=== PATIENT | female | born 1980 | race Caucasian/White ===

== ENCOUNTER → 2018-03-24 | Outpatient (REF) | payer OTHER | LOC: M SFHCLERA 11:19 | DX: R30.0 Dysuria (principal) ==

== ENCOUNTER 2018-12-20 12:23 | Emergency (ER) | payer OTHER ==
[~2018-12-20] VITALS: Ht 165.1 cm; Wt 81.8 kg
[2018-12-20 12:23] VITALS: BP 175/103
--- NOTE | 2018-12-20 13:40 | REP ---
Clinical: Blunt trauma to the right frontotemporal region. Comparison: None . Findings: The ventricles, sulci, and cisterns are normal in position and appearance. Beltrán-white differentiation is maintained. No acute intracranial hemorrhage, mass/mass effect, pathology or trauma/injury. No evidence for acute infarction. No extra-axial fluid collection. Calvarium is intact. Paranasal sinuses and mastoid air cells are clear. A very small laceration involving the scalp of the right frontal region noted. Impression: Essentially normal examination. No evidence for acute intracranial pathology or trauma/injury. Electronically Signed by Jarek Meyer MD 12/20/2018 01:32 P
[2018-12-20] MEDS ORDERED: ACETAMINOPHEN 325 MG TAB PO ONE (13:45)
[2018-12-20] MEDS ORDERED: ONDANSETRON 4 MG ORAL DISINTEGRATING TAB (Q0162 PER 1MG) PO ONE (13:45)
[2018-12-20] MEDS ORDERED: LIDOCAINE W/EPINEPHRINE 1% 20ML VIAL SC ONE (14:00)
[2018-12-20] MEDS ORDERED: IBUP-1022 PO (14:35)
[2018-12-20] MEDS ORDERED: ONDA4TAB6 PO (14:35)
[2018-12-20] MEDS ORDERED: IBUPROFEN 800 MG TAB PO ONE (14:45)
== END 2018-12-20 14:45 | disposition home or self-care (01) ==
LOC: M ED 12:23
DX: S06.0X0A Concussion without loss of consciousness, initial encounter (principal); S01.81XA Laceration without foreign body of other part of head, initial encounter; W21.04XA Struck by golf ball, initial encounter; Y92.89 Other specified places as the place of occurrence of the external cause
CPT/HCPCS: 12011; 70450; 99284; Q0162

== ENCOUNTER → 2019-07-31 | Outpatient (CLI) | payer OTHER ==
[~2019-07-31] MED LIST: IBUP-1022 PO; ONDA4TAB6 PO
== END ==
LOC: M LRY 13:19
PROVIDERS: ATTEND Physician Assistant
DX: R05 Cough (principal); Z53.9 Procedure and treatment not carried out, unspecified reason

== ENCOUNTER → 2019-07-31 | Outpatient (CLI) | payer OTHER ==
--- NOTE | 2019-07-31 13:39 | REP ---
PA and lateral chest: There are no comparisons. The lung garcia are clear. The cardiac size is normal. The marlen, mediastinum, and skeletal structures are unremarkable. Impression: Negative PA and lateral chest. Electronically Signed by Obey Pradhan MD 07/31/2019 01:29 P
== END ==
LOC: M LRY 13:19
PROVIDERS: ATTEND Physician Assistant
DX: R05 Cough (principal)
CPT/HCPCS: 71046; G0463